=== PATIENT | male | born 1955 | race Caucasian/White ===

== ENCOUNTER 2023-03-12 07:03 | Day surgery (SDC) | payer MEDICARE, BC ==
[2023-03-09 11:09] LABS: BASOPHILS % (AUTO) 0.6 % (0-1); EOSINOPHILS # (AUTO) 0.2 X10'3 (0-0.9); EOSINOPHILS % (AUTO) 2.3 % (0-6); LYMPHOCYTES # (AUTO) 1.7 X10'3 (1.1-4.8); LYMPHOCYTES % (AUTO) 23.5 % (21-51); MEAN CORPUSCULAR HEMOGLOBIN 30.1 PG (27.0-31.0); MEAN CORPUSCULAR HGB CONC 33.3 g/dL (33.0-36.5); MEAN CORPUSCULAR VOLUME 90.4 FL (78-98); MONOCYTES # (AUTO) 0.8 X10'3 (0-0.9); MONOCYTES % (AUTO) 10.4 % (2-12); NEUTROPHILS # (AUTO) 4.7 X10'3 (1.8-7.7); NEUTROPHILS % (AUTO) 63.2 % (42-75); PRE OP HEMATOCRIT 46.5 % (42.0-52.0); PRE OP HEMOGLOBIN 15.5 g/dL (14.0-17.9); PRE OP PLATELET COUNT 222 X10'3 (140-440); RED BLOOD COUNT 5.15 X10'6 (4.70-6.10); RED CELL DISTRIBUTION WIDTH 13.9 % (11.5-14.5)
[2023-03-09 11:14] LABS: ALBUMIN 4.2 G/DL (3.4-5.0); ALBUMIN/GLOBULIN RATIO 1.2 (1.1-1.5); ALKALINE PHOSPHATASE 55 IU/L (46-116); BLOOD UREA NITROGEN 15 MG/DL (7-18); BUN/CREATININE RATIO 14.7 (10.0-20.0); CALCIUM 9.4 MG/DL (8.5-10.1); CHLORIDE 107 MMOL/L (99-107); CREATININE 1.02 MG/DL (0.60-1.10); PRE OP ALT 42 U/L (30-65); PRE OP ANION GAP 11 (8-16); PRE OP AST 34 U/L (10-37); PRE OP BILIRUB, TOTAL 0.7 MG/DL (0.0-1.0); PRE OP GLUCOSE 102 MG/DL (70-104); PRE OP POTASSIUM 4.2 MMOL/L (3.4-5.1); PRE OP SODIUM 141 MMOL/L (135-145); TOTAL CARBON DIOXIDE 23.4 MMOL/L (24-32); TOTAL PROTEIN 7.8 G/DL (6.4-8.2); eGFR 72 ML/MIN
[2023-03-12] VITALS (7 sets, daily range): BP systolic 104–145; BP diastolic 55–80
[~2023-03-12] VITALS: Ht 180.3 cm; Wt 97.0 kg
[~2023-03-12 07:03] MED LIST: AMLO2.5T2 PO; ATOR40TA PO; AZEL30SP3 BOTHNARES; BUPIVAcaine/PF 2.5 mg/ml (0.25%) 30ml vial ONE; CELE-193 PO; ESOM40CA17 PO; FEXO180T94 PO; LEVO75TA PO; LINA290C PO; LOSA1TAB39 PO; MULT-1085 PO; PSEU30CA2 PO; TADA5TAB2 PO; TEMA15CA5 PO; VIT1TAB.9 PO; cefazolin 2gm/D5W 100mL 100 ML IV ONE; famotidine 20mg tablet PO ONE; ringers solution, lacted 1,000 ML IV SCH
[2023-03-12] MEDS ORDERED: MIDAZolam 1 MG/ML 5ML VIAL ONE (13:06)
[2023-03-12] MEDS ORDERED: fentaNYL/PF 50MCG/1 ML 2ML syringe ONE (13:06)
[2023-03-12] MEDS ORDERED: BUPIVAcaine/PF 2.5mg/ml (0.25%) 10ml vial IJ ONE (13:31)
[2023-03-12] MEDS ORDERED: meperidine/PF 50mg/ml syringe ONE (13:43)
--- NOTE | 2023-03-12 14:00 | NUR ---
Received from OR via [facility], accompanied by Anesthesiologist and report given by DESTINEY Anesthesiologist. PATIENT WAKING UP, DENIES PAIN, V/S WNL, PIV 20G TO LEFT HAND, RIGHT WRIST DRESSING CDI. ICE AND ELEVATED RUE. Addendum: 03/12/23 at 1431 by Tom Thompson RN Amended: Links added.
[2023-03-12] MEDS ORDERED: acetaminophen 1,000mg/100ml IV 100 ML IV ONE (14:30)
[2023-03-12] MEDS ORDERED: meperidine/PF 25mg/ml syringe IV PRN ×2 (14:30)
--- NOTE | 2023-03-12 14:55 | NUR ---
ALL DISCHARGE CRITERIA HAS BEEN MET. VSS, PAIN AT A TOLERABLE LEVEL, VOIDING AND ABLE TO SAFELY AMBULATE AND TRANSFER SELF. IV TAKEN OUT WITHOUT ANY COMPLICATIONS. ALL DISCHARGE INSTRUCTIONS COVERED WITH PATIENT AND ALL QUESTIONS ANSWERED. PATIENT TAKEN OUT VIA WHEELCHAIR WITH ALL BELONGINGS TO PERSONAL VEHICLE WHERE FAMILY DROVE PATIENT HOME. Addendum: 03/12/23 at 1458 by Tom Thompson RN Amended: Links added.
== END 2023-03-12 14:55 | disposition home or self-care (01) ==
LOC: PAS 07:03
PROVIDERS: ATTEND Orthopaedic Surgery Hand Surgery
DX: M18.11 Unilateral primary osteoarthritis of first carpometacarpal joint, right hand (principal); G56.01 Carpal tunnel syndrome, right upper limb; F41.9 Anxiety disorder, unspecified; E78.00 Pure hypercholesterolemia, unspecified; I10 Essential (primary) hypertension; M81.0 Age-related osteoporosis without current pathological fracture; Z87.891 Personal history of nicotine dependence; F10.91 Alcohol use, unspecified, in remission; Z98.890 Other specified postprocedural states; Z96.653 Presence of artificial knee joint, bilateral; Z79.899 Other long term (current) drug therapy
CPT/HCPCS: 25310; 25447; 36415; 64721; 80053; 82948; 85025; J0131; J0690; J2175; J2250; J3010; J3490; J7030; J7120; Z7506; Z7508; Z7512; A4215; A4618; A7000

== ENCOUNTER → 2023-09-21 | Day surgery (SDC) | payer MEDICARE, BC ==
[2023-09-17 10:12] LABS: BASOPHILS % (AUTO) 0.3 % (0-1); EOSINOPHILS # (AUTO) 0.1 X10'3 (0-0.9); EOSINOPHILS % (AUTO) 2.4 % (0-6); LYMPHOCYTES # (AUTO) 1.4 X10'3 (1.1-4.8); LYMPHOCYTES % (AUTO) 24.2 % (21-51); MEAN CORPUSCULAR HEMOGLOBIN 30.2 PG (27.0-31.0); MEAN CORPUSCULAR HGB CONC 33.7 g/dL (33.0-36.5); MEAN CORPUSCULAR VOLUME 89.6 FL (78-98); MEAN PLATELET VOLUME 7.5 FL (7.4-10.4); MONOCYTES # (AUTO) 0.5 X10'3 (0-0.9); NEUTROPHILS # (AUTO) 3.9 X10'3 (1.8-7.7); NEUTROPHILS % (AUTO) 65.1 % (42-75); PRE OP HEMATOCRIT 47.7 % (42.0-52.0); PRE OP HEMOGLOBIN 16.1 g/dL (14.0-17.9); PRE OP PLATELET COUNT 224 X10'3 (140-440); RED BLOOD COUNT 5.33 X10'6 (4.70-6.10); RED CELL DISTRIBUTION WIDTH 13.9 % (11.5-14.5)
[2023-09-17 10:38] LABS: ALBUMIN 4.1 G/DL (3.4-5.0); ALKALINE PHOSPHATASE 65 IU/L (46-116); BLOOD UREA NITROGEN 15 MG/DL (7-18); BUN/CREATININE RATIO 12.9 (10.0-20.0); CALCIUM 9.8 MG/DL (8.5-10.1); CHLORIDE 104 MMOL/L (99-107); CREATININE 1.16 MG/DL (0.60-1.10); PRE OP ALT 34 U/L (30-65); PRE OP ANION GAP 6 (8-16); PRE OP AST 25 U/L (10-37); PRE OP BILIRUB, TOTAL 0.9 MG/DL (0.0-1.0); PRE OP GLUCOSE 103 MG/DL (70-104); PRE OP SODIUM 140 MMOL/L (135-145); TOTAL CARBON DIOXIDE 29.7 MMOL/L (24-32); TOTAL PROTEIN 8.1 G/DL (6.4-8.2); eGFR 62 ML/MIN
[~2023-09-21] VITALS: Ht 180.3 cm; Wt 99.3 kg
[~2023-09-21] MED LIST changes: -BUPIVAcaine/PF 2.5 mg/ml (0.25%) 30ml vial ONE; +BUPIVAcaine/PF 2.5mg/ml (0.25%) 10ml vial IJ ONE; +LIDOcaine 0.5% (5mg/ml) 50ml vial ONE; +acetaminophen 1,000mg/100ml IV 100 ML IV SCH; +fentaNYL/PF 50MCG/1 ML 2ML syringe ONE; +ketamine 50mg/5ml syringe ONE; +meperidine/PF 25mg/ml syringe IV PRN; +midazolam 1 mg/ML 2ml injection ONE; +morphine 2 MG/ML inj. syringe IV PRN; +morphine 4 MG/ML inj SYRINge IV PRN; +ondansetron/PF 4mg/2ml inj IV PRN; +proCHLORperazine 10 MG/2 ml inj IV PRN; +propofol inj 20 ML IV ONE
[2023-09-21 07:00] VITALS: BP 181/88; PULSE 78; RESP 16; TEMP 98.4; O2SAT 97
[2023-09-21 09:54] VITALS: BP 116/0; PULSE 67; RESP 16; O2SAT 96
--- NOTE | 2023-09-21 09:54 | NUR ---
Received from OR via [facility] , accompanied by Anesthesiologist ART and report given by Anesthesiolgist. PATIENT WITH 20G PIV IN RIGHT HAND RUNNING LR AT 100. VSS AT THIS TIME. SPLINT TO LEFT WRIST AREA. DRESSING CDI AND + CAP REFILL AND SENSATION. ICE DONNED UPON ARRIVAL. Addendum: 09/21/23 at 1003 by Julian Menezes RN, RN Amended: Links added.
[2023-09-21 10:00] VITALS: BP 124/87; PULSE 70; RESP 16; O2SAT 98
[2023-09-21 10:10] VITALS: BP 130/80; PULSE 64; RESP 16; O2SAT 96
[2023-09-21 10:20] VITALS: BP 128/78; PULSE 66; RESP 18; O2SAT 97
[2023-09-21 10:30] VITALS: BP 124/9; PULSE 67; RESP 16; O2SAT 98
[2023-09-21] MEDS: meperidine/PF 25mg/ml syringe IV PRN ×2 (10:30→10:33)
--- NOTE | 2023-09-21 10:44 | NUR ---
ABLE TO SAFELY AMBULATE AND TRANSFER SELF. IV TAKEN OUT WITHOUT ANY COMPLICATIONS. ALL DISCHARGE INSTRUCTIONS COVERED WITH PATIENT AND ALL QUESTIONS ANSWERED. PATIENT TAKEN OUT VIA WHEELCHAIR TO PERSONAL VEHICLE WHERE FAMILY/FRIEND DROVE PATIENT HOME. Addendum: 09/21/23 at 1052 by Julian Menezes RN, RN Amended: Links added.
== END | disposition home or self-care (01) ==
LOC: PAS 06:15
PROVIDERS: ATTEND Orthopaedic Surgery Hand Surgery
DX: M18.12 Unilateral primary osteoarthritis of first carpometacarpal joint, left hand (principal); G56.02 Carpal tunnel syndrome, left upper limb; I10 Essential (primary) hypertension; E78.00 Pure hypercholesterolemia, unspecified; F41.9 Anxiety disorder, unspecified; M81.0 Age-related osteoporosis without current pathological fracture; Z96.653 Presence of artificial knee joint, bilateral; Z98.890 Other specified postprocedural states; Z87.891 Personal history of nicotine dependence; Z79.899 Other long term (current) drug therapy
CPT/HCPCS: 25310; 25447; 36415; 64721; 80053; 82948; 85025; 93005; J0690; J2175; J2250; J2704; J3010; J3490; J7030; J7120; Z7506; Z7512; A4215; A4618; A7000